=== PATIENT | female | born 1970 | race American Indian/Alaskan Native ===

== ENCOUNTER 2017-05-21 14:37 | Emergency (ER) | payer SELFPAY ==
[2017-05-21 14:56] VITALS: BP 211/112
== END 2017-05-21 15:20 | disposition left against medical advice (07) ==
LOC: ED 14:37
DX: R10.30 Lower abdominal pain, unspecified (principal); Z53.21 Procedure and treatment not carried out due to patient leaving prior to being seen by health care provider

== ENCOUNTER 2019-06-14 10:11 | Emergency (ER) | payer SELFPAY ==
[2019-06-14] MEDS ORDERED: DEXAMETHASONE 4 MG TAB PO ONE (12:07)
[2019-06-14] MEDS ORDERED: IPRATROPIUM/ALBUTEROL SULFATE 3 ML AMPUL.NEB IH ONE (12:07)
[2019-06-14] MEDS ORDERED: hydrALAZINE 25 MG TAB PO ONE (12:08)
--- NOTE | 2019-06-14 12:10 | Emergency Department Report ---
ED General Adult HPI - General Chief complaint: Upper Respiratory Infection Stated complaint: CHILLS,BODYACHE,RUNNY NOSE Time Seen by Provider: 06/14/19 11:53 Source: patient Mode of arrival: Ambulatory Limitations: No Limitations - History of Present Illness Initial comments: 49-year-old -[place] female patient with history of hypertension (non compliant with meds) complains of productive cough, congestion, and runny nose for the past 4 days. She states a fever of 101.3 at home yesterday and intermittent chills and body aches. She reports TheraFlu and other [id number] cold medications are not working. She admits to smoking. Denies history of asthma. She denies any shortness of breath. - Related Data Home Medications Medication Instructions Recorded Confirmed Last Taken Amlodipine Besylate [Norvasc] 10 mg PO DAILY 07/23/13 07/23/13 07/23/13 Previous Rx's Medication Instructions Recorded Last Taken Type HYDROcodone/APAP 5-325 [[place] 1 each PO Q6HR PRN #20 tablet 07/24/13 Unknown Rx 5/325 mg] Ibuprofen [Motrin] 800 mg PO TID PRN #30 tablet 07/24/13 Unknown Rx metroNIDAZOLE [Flagyl] 500 mg PO BID #14 tablet 07/24/13 Unknown Rx ALBUTEROL Inhaler (OR & NICU) 2 puff IH Q4H PRN #8.5 gram 06/14/19 Unknown Rx [ProAir HFA Inhaler] Benzonatate 200 mg PO TID PRN #30 capsule 06/14/19 Unknown Rx Prednisone [predniSONE 10 mg 10 mg PO .TAPER #1 tab.ds.pk 06/14/19 Unknown Rx (6-Day Pack, 21 Tabs)] Sulfamethoxazole/Trimethoprim 1 each PO BID 10 Days #20 tablet 06/14/19 Unknown Rx [Bactrim DS TAB] amLODIPine 10 mg PO DAILY 90 Days #90 tab 06/14/19 Unknown Rx Allergies Allergy/AdvReac Type Severity Reaction Status Date / Time amoxicillin [Amoxicillin] Allergy Rash Verified 07/23/13 18:20 ED Review of Systems ROS: Stated complaint: CHILLS,BODYACHE,RUNNY NOSE Other details as noted in HPI Comment: All other systems reviewed and negative Constitutional: chills, fever, malaise. denies: diaphoresis Respiratory: cough. denies: shortness of breath, SOB with exertion, wheezing Cardiovascular: denies: chest pain, edema, syncope ED Past Medical Hx - Past Medical History Hx Hypertension: Yes - Surgical History Additional Surgical History: tubaligation - Social History Smoking Status: Current Every Day Smoker Substance Use Type: None - Medications Home Medications: Home Medications Medication Instructions Recorded Confirmed Last Taken Type Amlodipine Besylate [Norvasc] 10 mg PO DAILY 07/23/13 07/23/13 07/23/13 History HYDROcodone/APAP 5-325 [[place] 1 each PO Q6HR PRN #20 tablet 07/24/13 Unknown Rx 5/325 mg] Ibuprofen [Motrin] 800 mg PO TID PRN #30 tablet 07/24/13 Unknown Rx metroNIDAZOLE [Flagyl] 500 mg PO BID #14 tablet 07/24/13 Unknown Rx ALBUTEROL Inhaler (OR & NICU) 2 puff IH Q4H PRN #8.5 gram 06/14/19 Unknown Rx [ProAir HFA Inhaler] Benzonatate 200 mg PO TID PRN #30 capsule 06/14/19 Unknown Rx Prednisone [predniSONE 10 mg 10 mg PO .TAPER #1 tab.ds.pk 06/14/19 Unknown Rx (6-Day Pack, 21 Tabs)] Sulfamethoxazole/Trimethoprim 1 each PO BID 10 Days #20 tablet 06/14/19 Unknown Rx [Bactrim DS TAB] amLODIPine 10 mg PO DAILY 90 Days #90 tab 06/14/19 Unknown Rx ED Physical Exam - General Limitations: No Limitations General appearance: alert, in no apparent distress - Head Head exam: Present: atraumatic, normocephalic - Eye Eye exam: Present: normal appearance. Absent: scleral icterus - ENT ENT exam: Present: normal exam, normal orophraynx - Neck Neck exam: Present: normal inspection. Absent: tenderness, lymphadenopathy - Respiratory Respiratory exam: Present: wheezes, rhonchi, decreased breath sounds. Absent: respiratory distress, rales, chest wall tenderness, accessory muscle use - Cardiovascular Cardiovascular Exam: Present: regular rate, normal rhythm. Absent: systolic murmur, diastolic murmur, rubs, gallop - GI/Abdominal GI/Abdominal exam: Present: soft. Absent: tenderness - Back Exam Back exam: Present: full ROM - Neurological Exam Neurological exam: Present: alert, oriented X3 - Psychiatric Psychiatric exam: Present: normal affect, normal mood - Skin Skin exam: Present: warm, dry, intact, normal color. Absent: rash ED Course Vital Signs 06/14/19 06/14/19 06/14/19 10:16 11:38 13:51 Temperature 98.5 F 98.5 F 98.5 F Pulse Rate 99 H 84 94 H Respiratory 18 16 18 Rate Blood Pressure 173/106 Blood Pressure 203/109 204/106 [Left] O2 Sat by Pulse 98 96 97 Oximetry 06/14/19 06/14/19 14:20 14:54 Temperature 98.7 F Pulse Rate 68 103 H Respiratory 17 Rate Blood Pressure 206/106 Blood Pressure 155/76 [Left] O2 Sat by Pulse 97 Oximetry ED Medical Decision Making - Lab Data Result diagrams: 06/14/19 12:25 06/14/19 12:25 Lab Results 06/14/19 06/14/19 Range/Units 12:25 12:25 WBC 3.8 L (4.5-11.0) K/mm3 RBC 4.36 (3.65-5.03) M/mm3 Hgb 12.2 (10.1-14.3) gm/dl Hct 37.9 (30.3-42.9) % MCV 87 (79-97) fl MCH 28 (28-32) pg MCHC 32 (30-34) % RDW 18.5 H (13.2-15.2) % Plt Count 284 (140-440) K/mm3 Sodium 135 L (137-145) mmol/L Potassium 4.0 (3.6-5.0) mmol/L Chloride 97.5 L (98-107) mmol/L Carbon Dioxide 23 (22-30) mmol/L Anion Gap 19 mmol/L BUN 6 L (7-17) mg/dL Creatinine 0.5 L (0.7-1.2) mg/dL Estimated GFR > 60 ml/min BUN/Creatinine Ratio 12 % Glucose 107 H (65-100) mg/dL Calcium 8.9 (8.4-10.2) mg/dL - Radiology Data Radiology results: report reviewed CHEST 2 VIEWS INDICATION / CLINICAL INFORMATION: cough, fever, left sided BS abnormal. COMPARISON: None available. FINDINGS: SUPPORT DEVICES: None. HEART / MEDIASTINUM: No significant abnormality. LUNGS / PLEURA: No significant pulmonary or pleural abnormality. No pneumothorax . ADDITIONAL FINDINGS: No significant additional findings. IMPRESSION: 1. No acute findings. - Medical Decision Making 1-year-old female patient here for cough and congestion with fever for the past 4 days. WBCs are WNL. No fever or tachycardia noted today. Chest x-ray is negative for pneumonia. Patient states breathing has improved with nebulizer treatment. Given fever at home, wheezing and rhonchi noted on exam, and history of smoking will treat for bacterial bronchitis. Patient states noncompliant with amlodipine for one year due to not having insurance. Blood pressure improved with IV hydralazine 10 mg from 203/109 to 155/76. Will refill amlodipine. Recommended follow-up with primary care within 3-5 days. Critical care attestation.: If time is entered above; I have spent that time in minutes in the direct care of this critically ill patient, excluding procedure time. ED Disposition Clinical Impression: Acute bacterial bronchitis Disposition: TO HOME OR SELFCARE Is pt being admited?: No Condition: Stable Instructions: Acute Bronchitis (ED), Hypertension (ED) Prescriptions: amLODIPine 10 mg PO DAILY 90 Days #90 tab Sulfamethoxazole/Trimethoprim [Bactrim DS TAB] 1 each PO BID 10 Days #20 tablet Benzonatate 200 mg PO TID PRN #30 capsule PRN Reason: Cough Prednisone [predniSONE 10 mg (6-Day Pack, 21 Tabs)] 10 mg PO .TAPER #1 tab.ds.pk ALBUTEROL Inhaler (OR & NICU) [ProAir HFA Inhaler] 2 puff IH Q4H PRN #8.5 gram PRN Reason: Shortness Of Breath Referrals: [facility] [Provider Group] - 3-5 Days
--- NOTE | 2019-06-14 12:28 | XRay Report ---
CHEST 2 VIEWS INDICATION / CLINICAL INFORMATION: cough, fever, left sided BS abnormal. COMPARISON: None available. FINDINGS: SUPPORT DEVICES: None. HEART / MEDIASTINUM: No significant abnormality. LUNGS / PLEURA: No significant pulmonary or pleural abnormality. No pneumothorax. ADDITIONAL FINDINGS: No significant additional findings. IMPRESSION: 1. No acute findings. Signer Name: Darron Carbone MD Signed: 06/14/2019 12:23 PM Workstation Name: [id number]
[2019-06-14 12:32] LABS: Hematocrit 37.9 % (30.3-42.9); Hemoglobin 12.2 gm/dl (10.1-14.3); Mean Corpuscular HGB Conc 32 % (30-34); Mean Corpuscular Volume 87 fl (79-97); Platelet Count 284 K/mm3 (140-440); Red Blood Count 4.36 M/mm3 (3.65-5.03); Red Cell Distribution Width 18.5 % (13.2-15.2)
[2019-06-14 12:45] LABS: BUN/Creatinine Ratio 12; Blood Urea Nitrogen 6 mg/dL (7-17); Calcium 8.9 mg/dL (8.4-10.2); Hemolysis Index 14
[2019-06-14] MEDS ORDERED: hydrALAZINE 20 MG/1 ML INJ IV ONE (13:56)
[2019-06-14 14:56] VITALS: BP 155/76
== END 2019-06-14 15:14 | disposition home or self-care (01) ==
LOC: ED 10:11
DX: J20.9 Acute bronchitis, unspecified (principal); I10 Essential (primary) hypertension; F17.200 Nicotine dependence, unspecified, uncomplicated; Z98.51 Tubal ligation status; Z88.8 Allergy status to other drugs, medicaments and biological substances; Z79.899 Other long term (current) drug therapy
CPT/HCPCS: 36415; 71046; 80048; 85027; 94640; 96374; 99284; J0360; J8540